=== PATIENT | female | born 1985 | race American Indian/Alaskan Native ===

== ENCOUNTER 2017-12-27 11:43 | Emergency (ER) | payer OTHER ==
[2017-12-27 12:04] VITALS: TEMP 98.7; O2SAT 100; BMI 26.5
[2017-12-27 12:14] VITALS: RESP 18
[2017-12-27 14:23] LABS: BASO % 0.3 % (0.0-2.0); EOS # 0.1 K/uL (0.0-0.7); EOS % 1.3 % (0.0-4.0); HEMOGLOBIN 11.6 g/dL (12.0-16.0); LYMPH # 2.2 K/uL (1.0-4.3); LYMPH % 27.2 % (20.0-40.0); MEAN CELL VOLUME 93.1 fl (81.0-99.0); MEAN CORPUSCULAR HEMOGLOBIN 31.4 pg (27.0-31.0); MEAN CORPUSCULAR HGB CONC 33.7 g/dL (33.0-37.0); MEAN PLATELET VOLUME 7.9 fl (7.2-11.7); MONO # 0.7 K/uL (0.0-0.8); MONO % 8.8 % (0.0-10.0); NEUT % 62.4 % (50.0-75.0); NRBC % 0.1 % (0.0-0.0); RBC 3.71 Mil/uL (3.80-5.20); RED CELL DISTRIBUTION WIDTH 12.7 % (11.5-14.5)
[2017-12-27 14:27] LABS: ALB/GLOB RATIO 1.3 (1.0-2.1); ALBUMIN 4.3 g/dL (3.5-5.0); ALT/SGPT 23 U/L (9-52); AST/SGOT 24 U/L (14-36); BLOOD UREA NITROGEN 12 mg/dl (7-17); CALCIUM 9.5 mg/dL (8.4-10.2); GFR AFRICAN-AMERICAN > 60; GFR NON-AFRICAN AMERICAN > 60
[2017-12-27 14:28] LABS: INR 1.1 (0.9-1.2); PARTIAL THROMBOPLASTIN TIME 32.6 Seconds (25.6-37.1); PROTHROMBIN TIME 11.8 Seconds (9.8-13.1)
--- NOTE | 2017-12-27 16:30 | US ---
Date of service: 12/27/2017 PROCEDURE: OB Pelvic Ultrasound HISTORY: 12 weeks, bleeding LMP: 09/28/2017 COMPARISON: None available. FINDINGS: UTERUS: Gestational sac: None No pole identified. Endometrial sickness 6.3 mm. Fluid, debris in the endometrial canal extending into the cervix. Uterus measures 5.8 x 5.4 x 13.9 cm. Normal in size and appearance. CERVIX: Fluid common debris identified within the endometrial canal and endocervical canal. RIGHT OVARY: Measures 1.6 x 3.4 x 3.4 cm. No mass lesion. Normal flow. LEFT OVARY: Measures 1.1 x 1.7 x 1.7 cm. No solid mass. Normal flow. Sub cm cyst/ follicle identified FREE FLUID: None. OTHER FINDINGS: None. IMPRESSION: Thickened endometrial echo complex with debris. Findings extent in the cervical canal. Retained products of conception likely. Unremarkable adnexa.
--- NOTE | 2017-12-27 17:17 | ED PDOC ---
HPI: Abdomen Time Seen by Provider: 12/27/17 12:20 Chief Complaint (Nursing): Abdominal Pain Chief Complaint (Provider): Suprapubic pain, vaginal bleeding History Per: Patient History/Exam Limitations: no limitations Onset/Duration Of Symptoms: Days Outside of [place] travel?: No Additional Complaint(s): 32 yo female presents at 12 weeks gestation with vaginal bleeding. Pt states she began bleeding on 12/24/17 and it was light. She reports passing a large clot, which she believes was the fetus on 12/25 ` `t the bleeding afterwards was not heavy. Pt states today she began bleeding heavier at home. Pts OB Dr. villegas advised her to come to ER for evaluation. Pt states bleeding has slowed since this morning and is now similar to menses. Past Medical History Reviewed: Historical Data, Nursing Documentation, Vital Signs Vital Signs: Last Vital Signs Temp 98.7 F 12/27/17 12:10 Pulse 78 12/27/17 12:10 Resp 18 12/27/17 12:10 BP 100/65 12/27/17 12:10 Pulse Ox 100 12/27/17 12:10 - Medical History PMH: No Chronic Diseases - Surgical History Surgical History: No Surg Hx - Family History Family History: States: No Known Family Hx - Living Arrangements Living Arrangements: With Family - Social History Current smoker - smoking cessation education provided: No Alcohol: None Drugs: Denies - Home Medications Home Medications: Ambulatory Orders Medication Instructions Recorded traMADol [Ultram] 50 mg PO Q6H PRN #15 tab 12/27/17 - Allergies Allergies/Adverse Reactions: Allergies Allergy/AdvReac Type Severity Reaction Status Date / Time Sulfa (Sulfonamide Allergy RASH Verified 12/27/17 12:15 Antibiotics) Review of Systems ROS Statement: Except As Marked, All Systems Reviewed And Found Negative Genitourinary Female: Positive for: Vaginal Bleeding, Pelvic Pain Physical Exam - Reviewed Nursing Documentation Reviewed: Yes Vital Signs Reviewed: Yes - Physical Exam Appears: Positive for: Well, Non-toxic, No Acute Distress Head Exam: Positive for: ATRAUMATIC, NORMAL INSPECTION, NORMOCEPHALIC Skin: Positive for: Normal Color, Warm, DRY Eye Exam: Positive for: Normal appearance ENT: Positive for: Normal ENT Inspection Neck: Positive for: Normal, Painless ROM Cardiovascular/Chest: Positive for: Regular Rate, Rhythm Respiratory: Positive for: CNT, Normal Breath Sounds Gastrointestinal/Abdominal: Positive for: Normal Exam, Soft. Negative for: Tenderness Back: Positive for: Normal Inspection Extremity: Positive for: Normal ROM Neurologic/Psych: Positive for: Alert, Oriented - Laboratory Results Result Diagrams: 12/27/17 14:00 12/27/17 14:00 - ECG O2 Sat by Pulse Oximetry: 100 Medical Decision Making Medical Decision Making: US without fetus, retained products. Dr. Villegas contacted however is in OR. Discussed with patient and she states that she has appointment with him tomorrow. Pt prefers to go home and see him tomorrow. Pt reports feeling comfortable. Pt given US report an labs. Disposition - Clinical Impression Clinical Impression: Miscarriage - Patient ED Disposition Is Patient to be Admitted: No Counseled Patient/Family Regarding: Diagnosis, Need For Followup, Rx Given - Disposition Referrals: Erasto Villegas MD [Staff Provider] - Disposition: Routine/Home Disposition Time: 17:15 Condition: STABLE Prescriptions: traMADol [Ultram] 50 mg PO Q6H PRN #15 tab PRN Reason: Pain Instructions: Dealing With Miscarriage
[2017-12-27 17:39] VITALS: BP 108/65; PULSE 72
== END 2017-12-27 17:30 | disposition home or self-care (01) ==
LOC: H.ER 11:43
DX: O03.9 Complete or unspecified spontaneous abortion without complication (principal)